=== PATIENT | female | born 1955 | race Caucasian/White ===

== ENCOUNTER → 2017-10-22 | Outpatient (CLI) | payer BC ==
[2017-10-22 13:10] LABS: BASO % 0.1 %; BASO ABS # 0.01 K/uL (0-0.2); COMPLETE YES; EOS % 0.6 %; HEMATOCRIT 37.3 % (37-47); IG% 0.1 %; LYMPH ABS # 0.94 K/uL (1.2-3.4); MEAN CELL VOLUME 92.1 fL (80-100); MEAN CORPUSCULAR HEMOGLOBIN 30.9 pg (25-34); MEAN CORPUSCULAR HGB CONC 33.5 g/dl (32-36); MEAN PLATELET VOLUME 10.3 fL (7.4-10.4); NEUT % 81.2 %; PLATELET COUNT 257 K/uL (130-400); RED BLOOD COUNT 4.05 M/uL (4.2-5.4); WHITE BLOOD COUNT 6.73 K/uL (4.8-10.8)
[2017-10-22 13:37] LABS: BLOOD UREA NITROGEN 18 mg/dl (7-18); CREATININE 0.86 mg/dl (0.60-1.20)
[2017-10-22 14:00] LABS: LYME DISEASE AB IGG NEG (NEG)
[2017-10-22 14:01] LABS: LYME DISEASE AB IGM EQUIVOCAL (NEG)
[2017-10-26 20:21] LABS: ANTI-68 kd Ag (HSP-70 Ab) NEGATIVE (NEGATIVE)
[2017-10-28 14:29] LABS: 18KDIGG BAND NONREACTIVE (NONREACTIVE); 23KDIGG BAND REACTIVE (NONREACTIVE); 23KDIGM BAND REACTIVE (NONREACTIVE); 28KDIGG BAND NONREACTIVE (NONREACTIVE); 30KDIGG BAND NONREACTIVE (NONREACTIVE); 39KDIGG BAND NONREACTIVE (NONREACTIVE); 39KDIGM BAND NONREACTIVE (NONREACTIVE); 41KDIGG BAND REACTIVE (NONREACTIVE); 41KDIGM BAND NONREACTIVE (NONREACTIVE); 45KDIGG BAND NONREACTIVE (NONREACTIVE); 58KDIGG BAND NONREACTIVE (NONREACTIVE); 66KDIGG BAND NONREACTIVE (NONREACTIVE); 93KDIGG BAND NONREACTIVE (NONREACTIVE)
== END | disposition home or self-care (01) ==
LOC: C.LAB1850 11:30
DX: H90.41 Sensorineural hearing loss, unilateral, right ear, with unrestricted hearing on the contralateral side (principal)

== ENCOUNTER → 2017-10-26 | Outpatient (CLI) | payer BC ==
[~2017-10-26] MED LIST: GADAVIST IV PRN
--- NOTE | 2017-10-26 07:35 | DIAGNOSTIC IMAGING REPORT ---
BRAIN COMBO FOR IAC HISTORY: 62 years-old Female H90.41 Right asymmetrical SNHL COMPARISON: None available TECHNIQUE: Multiplanar multisequence MRI of the brain utilizing internal auditory canal protocol was obtained both with and without the use of 5 mL Gadavist. FINDINGS: No restricted diffusion to suggest acute infarction. The midline structures including the corpus callosum, brainstem, optic chiasm, pituitary, and the lumen and pineal glands are unremarkable in the sagittal T1 series. No cerebellar tonsillar herniation. Mild degenerative changes of the imaged cervical spine. No cerebellar tonsillar herniation. No acute intracranial hemorrhage, midline shift, abnormal extra-axial collections, hydrocephalus or intracranial mass identified. Scattered areas of increased T2/FLAIR signal are seen within the subcortical and periventricular white matter of the cerebral hemispheres bilaterally suggesting chronic microvascular ischemic changes. The thin section axial T2 images through the posterior fossa demonstrate normal appearance of the bilateral 7th and 8th cranial nerves. No mass of the cerebellopontine angles. The cisternal portions of the fifth cranial nerves are within normal limits. No abnormal intra-axial or extra-axial enhancement. No mass of the internal auditory canal. The major flow voids at the level the skull base are patent. Trace left mastoid effusion. No significant paranasal sinus disease. Orbits appear symmetric. Scalp, calvarium and soft tissues are unremarkable. IMPRESSION: 1. No acute intracranial abnormality. No abnormal enhancement, intra-axial or extra-axial mass identified. 2. Mild chronic microvascular ischemic changes. 3. Trace left mastoid effusion. The above report was generated using voice recognition software. It may contain grammatical, syntax or spelling errors. Electronically signed by: Javy Khoury M.D. 10/26/2017 7:34 AM Dictated Date/Time: 10/26/2017 7:28 AM
== END | disposition home or self-care (01) ==
LOC: C.MRI 06:05
DX: H90.41 Sensorineural hearing loss, unilateral, right ear, with unrestricted hearing on the contralateral side (principal)

== ENCOUNTER 2025-02-12 09:52 | Inpatient (IN) ==
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
[2025-02-12] MEDS: SODIUM CHLORIDE 0.9% 500 ML IV ONE (10:05)
[2025-02-12] MEDS: ONDANSETRON INJ 2 MG/ML 2 ML VIAL IV STA (10:05)
[2025-02-12] MEDS: MoRPHine SULFATE 4 MG/ML 1 ML CARP\\VIAL IV STA ×2 (10:05→12:18)
--- NOTE | 2025-02-12 10:28 | XRay Report ---
XR hip RT 2V w pelvis HISTORY: 69 years-old Female fall, R hip pain acute right hip pain status post fall COMPARISON: None TECHNIQUE: AP view of the pelvis with 2 views of the right hip FINDINGS: Mild osteoarthritis of the hips. There is an acute comminuted mildly displaced and impacted transcerv ical right femoral fracture demonstrating 1.2 cm superior displacement. Moderate adjacent soft tissue swelling without dislocation. IMPRESSION: Acute comminuted, impacted and mildly displaced transcervical fracture of the right femur . ACT 112: Negative or not required by law. The above report was generated using voice recognition software. It may contain grammatical, syntax o r spelling errors. Electronically signed by: Gera Khoury M.D. 02/12/2025 10:26 AM
[2025-02-12 10:30] LABS: Basophils # (auto) 0.03 K/uL (0.00-0.20); Basophils % (auto) 0.6 %; Eosinophils # (auto) 0.08 K/uL (0.00-0.50); Eosinophils % (auto) 1.7 %; Hematocrit (blood only) 37.7 % (37.0-47.0); Hemoglobin 12.2 g/dl (12.0-16.0); Immature Granulocytes # (auto) 0.01 K/uL (0.01-0.20); Immature Granulocytes % (auto) 0.2 %; Lymphocytes % (auto) 27.3 %; Mean Corpuscular Hgb Conc 32.4 g/dL (32.0-36.0); Mean Corpuscular Volume 92.9 fL (80.0-100.0); Mean Platelet Volume 9.8 fL (9.4-12.4); Monocytes # (auto) 0.55 K/uL (0.11-0.59); Monocytes % (auto) 11.5 %; Neutrophils % (auto) 58.7 %; Platelet Count 209 K/uL (130-400); RDW Coefficient of Variation 13.4 % (11.5-14.5); RDW Standard Deviation 45.6 fL (36.4-46.3); Red Blood Count 4.06 M/uL (4.20-5.40); White Blood Count 4.77 K/ul (4.8-10.8)
--- NOTE | 2025-02-12 10:37 | XRay Report ---
XR chest 1V portable CLINICAL HISTORY: Trauma COMPARISON STUDY: Chest radiograph and chest CT July 25, 2024. FINDINGS: Bilateral breast implants are incidentally noted. There is no pneumothorax or pleural effus ion. Mild cardiomegaly is unchanged. Pulmonary vascularity is normal. No airspace opacities are ident ified. Subpleural biapical densities favor scarring. IMPRESSION: No acute cardiopulmonary findings. ACT 112: Negative or not required by law. Electronically signed by: Moody Smith M.D. 02/12/2025 10:35 AM
[2025-02-12 10:49] LABS: Albumin Globulin Ratio 1.2 (0.9-2); Albumin Level 4.5 gm/dl (3.4-5.0); BUN Creatinine Ratio 27.5 (10-20); Bilirubin,Total 0.5 mg/dl (0.2-1.0); Creatinine Clr Calc Pharmacy 45.5 ml/min; Globulin 3.9 gm/dl (2.5-4.0); Potassium 4.2 mmol/L (3.5-5.1); Total Protein 8.4 gm/dl (6.0-8.3)
[2025-02-12 10:59] LABS: INR 0.9 (0.9-1.1); Partial Thromboplastin Ratio 0.9; Partial Thromboplastin Time 24 Seconds (21-31); Prothrombin Time 10.3 Seconds (9.0-12.0)
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
[2025-02-12 12:51] LABS: Appearance Urine Clear (Clear); Bilirubin Urine Negative (Negative); Blood Urine Negative (Negative); Color Urine Yellow; Glucose Urine UA Negative (Negative); Ketones Urine Negative (Negative); Leukocyte Esterase Urine Negative (Negative); Nitrite Urine Negative (Negative); Protein Urine Negative (Negative); Specific Gravity Urine 1.012 (1.000-1.030); Urobilinogen Urine Negative (Negative)
[2025-02-12 14:00] LABS: iSTAT Creatinine 1.1 mg/dl (0.6-1.3); iSTAT Hemoglobin 12.9 g/dl (12.0-16.0); iSTAT Ionized Calcium 1.14 mmol/l (1.12-1.32); iSTAT Potassium 4.2 mmol/L (3.3-5.0)
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
[2025-02-12] MEDS ORDERED: MELATONIN 3 MG TAB PO PRN (15:41)
[2025-02-12] MEDS ORDERED: POLYETHYLENE (MIRALAX) 17 GM PACK PO PRN (15:41)
[2025-02-12] MEDS ORDERED: ONDANSETRON INJ 2 MG/ML 2 ML VIAL IV PRN (15:41)
[2025-02-12] MEDS: ACETAMINOPHEN 500 MG TAB PO PRN (16:44)
[2025-02-12] MEDS: oxyCODONE HCL IR 5 MG TAB (IMMEDIATE RELEASE) PO PRN (23:05)
[2025-02-13] MEDS: LEVOTHYROXINE SODIUM 75 MCG TABLET PO SCH (05:30)
[2025-02-13] MEDS: MoRPHine SULFATE 4 MG/ML 1 ML CARP\\VIAL IV PRN (06:02)
[2025-02-13 07:31] LABS: Hemoglobin 11.6 g/dl (12.0-16.0); Mean Corpuscular Hemoglobin 30.4 pg (25.0-34.0); Mean Corpuscular Hgb Conc 33.1 g/dL (32.0-36.0); Mean Corpuscular Volume 91.9 fL (80.0-100.0); Mean Platelet Volume 9.5 fL (9.4-12.4); Platelet Count 192 K/uL (130-400); RDW Coefficient of Variation 13.4 % (11.5-14.5); RDW Standard Deviation 45.1 fL (36.4-46.3); Red Blood Count 3.81 M/uL (4.20-5.40); White Blood Count 7.63 K/ul (4.8-10.8)
[2025-02-13 07:43] LABS: BUN Creatinine Ratio 23.5 (10-20); Calcium 8.4 mg/dl (8.6-10.3); Creatinine Clr Calc Pharmacy 50.6 ml/min; Potassium 4.3 mmol/L (3.5-5.1)
--- NOTE | 2025-02-13 07:58 | Electrocardiogram Report ---
Test Reason : Blood Pressure : */* mmHG Vent. Rate : 75 BPM Atrial Rate : 75 BPM P-R Int : 150 ms QRS Dur : 90 ms QT Int : 374 ms P-R-T Axes : 47 -46 52 degrees QTcB Int : 417 ms Normal sinus rhythm Left atrial enlargement Left anterior fascicular block Incomplete right bundle branch block Voltage criteria for left ventricular hypertrophy Abnormal ECG When compared with ECG of 25-Jul-2024 11:48, No significant change was found Confirmed by Georges Epstein ([id number]) on 02/13/2025 7:57:42 AM Referred By: REFERRED SELF Confirmed By: Georges Epstein
[2025-02-13] MEDS: CHOLECALCIFEROL 25 MCG (1000 UNITS) TAB PO SCH (09:19)
[2025-02-13] MEDS: CYANOCOBALAMIN (B-12) 500 MCG TABLET PO SCH (09:19)
[2025-02-13] MEDS: SODIUM CHLORIDE 0.9% 1,000 ML IV ONE (10:44)
[2025-02-13] MEDS: ACETAMINOPHEN 1,000 MG/100 ML VIAL IV STA (10:49)
--- NOTE | 2025-02-13 11:53 | Orthopedic Progress Note ---
Date of Service February 13, 2025 Assessment & Plan (1) Femoral neck fracture: Plan: Patient is scheduled for right hip total arthroplasty with Dr. Kaur early this afternoon. She is currently NPO. She was very thirsty. I ordered her IV maintenance fluids while she is waiting for surgery. She can have a mouth swab to wet her mouth. As she was n.p.o. she did not receive any Tylenol, so I ordered her a one-time dose of IV Tylenol. She has morphine ordered. Will continue to follow after surgery. Admission and Anticipated Discharge Date Admission Date: February 12, 2025 Supervising Physician Co-Signing Physician Notes I saw and examined the patient. All questions answered. Surgical site marked. Proceed to operating room today for total hip replacement. Bertha Blackwell is seen in bed this morning. She states that she is still in pain but was able to get some sleep overnight. She was given morphine this morning. She is very thirsty. Denies any numbness or tingling in her toes. Physical Exam Constitutional: Laying supine in bed. Pleasant. No distress. Cardiovascular: Right DP and PT pulses 2+ Musculoskeletal: Right lower extremity: External rotation is noted. No calf tenderness. Able to move all toes. Able to plantarflex and dorsiflex the ankle. Neurologic: No sensory deficits in right lower extremity L3-S1 distribution to light touch Results & Data Vital Signs (Past 12 Hours) Vital Signs Temp Pulse Resp BP Pulse Ox O2 Del Method 02/13/25 07:07 98.2 F 73 16 134/68 96 Room Air Laboratory Results 02/13/25 02/12/25 02/12/25 07:10 12:36 10:11 WBC 7.63 RBC 3.81 L Hgb 11.6 L POC Hgb 12.9 Hct 35.0 L POC Hct 38 MCV 91.9 MCH 30.4 MCHC 33.1 RDW Std Deviation 45.1 RDW Coeff of Rachel 13.4 Plt Count 192 MPV 9.5 POC Sodium 137 Sodium 135 L POC Potassium 4.2 Potassium 4.3 POC Chloride 101 Chloride 104 Carbon Dioxide 27 POC Total CO2 25 Anion Gap 4 POC Anion Gap 17.0 POC BUN 28 H BUN 19 Creatinine 0.81 POC Creatinine 1.1 Est Cr Clr Drug Dosing 50.6 eGFR 77.56 BUN/Creatinine Ratio 23.5 H Glucose 120 H POC Glucose (other) 181 H Calcium 8.4 L POC Ioniz Calcium Misty 1.14 25-OH Vitamin D Total 46.0 Urine Color Yellow Urine Appearance Clear Urine pH 7.0 Ur Specific [place] 1.012 Urine Protein Negative Urine Glucose (UA) Negative Urine Ketones Negative Urine Blood Negative Urine Nitrite Negative Urine Bilirubin Negative Urine Urobilinogen Negative Ur Leukocyte Esterase Negative (1) Femoral neck fracture Encounter type: initial encounter Fracture type: closed Laterality: right Qualified Code(s): S72.001A - Fracture of unspecified part of neck of right femur, initial encounter for closed fracture
[2025-02-13] MEDS ORDERED: LIDOCAINE 2% 2 ML VIAL/AMP(20MG/ML) INFIL ONE (12:26)
[2025-02-13] MEDS ORDERED: PROPOFOL IV EMULSION 10 MG/ML 20 ML VIAL IV ONE ×2 (12:26→14:28)
[2025-02-13] MEDS ORDERED: MIDAZOLAM HCL 1 MG/ML 2ML VIAL ONE (12:29)
[2025-02-13] MEDS ORDERED: fentaNYL citrate PF 100 MCG/2 ML VIAL ONE (12:29)
[2025-02-13] MEDS ORDERED: BUPIVACAINE 0.5 % 5 MG/1 ML PF 10ML VIAL ONE (12:36)
--- NOTE | 2025-02-13 12:44 | Anesthesiology Consultation ---
Date of Service February 13, 2025 Assessment & Plan (1) Encounter for pre-operative examination: Chart Review Chart Review: Acceptable Risk for Surgery History Surgery Operation Date: 02/13/25 13:00 Proposed Procedures p Right Total Hip Arthroplasty, Possible Cemented - Mio Kaur MD Height/Weight Height: 5 ft 5 in Weight: 50.349 kg Allergies Allergy/AdvReac Type Severity Reaction Status Date / Time No Known Allergies Allergy Verified 02/12/25 10:57 Medications Home Medications Medication Instructions Recorded Confirmed Last Taken cyanocobalamin (vitamin B-12) 1,000 mcg PO QAM 02/15/24 02/12/25 02/11/25 1,000 mcg tablet (Vitamin B-12) alendronate 70 mg tablet 70 mg PO WK #12 tabs 06/05/24 02/12/25 02/08/25 cholecalciferol (vitamin D3) 50 100 mcg PO DAILY 02/12/25 02/12/25 02/11/25 mcg (2,000 unit) tablet (Vitamin D3) levothyroxine 75 mcg tablet 75 mcg PO QAM 02/12/25 02/12/25 02/12/25 Active Medications Generic Name Dose Route Start Last Admin Trade Name Freq PRN Reason Stop Dose Admin Acetaminophen 1,000 mg 02/12/25 15:41 02/12/25 16:44 Acetaminophen 500 Mg Tab PO 03/14/25 15:40 1,000 mg Q8 PRN Administration pain/fever Cyanocobalamin 1,000 mcg 02/13/25 09:00 02/13/25 09:19 Cyanocobalamin (B-12) 500 Mcg Tablet PO 03/15/25 08:59 Not Given QAM TUCKER Sodium Chloride 1,000 mls @ 80 mls/hr 02/13/25 10:39 02/13/25 10:44 Nss IV 02/13/25 23:08 80 mls/hr .[id number] ONE Administration Levothyroxine Sodium 75 mcg 02/13/25 06:30 02/13/25 05:30 Levothyroxine Sodium 75 Mcg Tablet PO 03/15/25 06:29 Not Given DAILYBB TUCKER Morphine Sulfate 4 mg 02/12/25 15:41 02/13/25 06:02 Morphine Sulfate 4 Mg/Ml 1 Ml Carp\Vial IV 02/26/25 15:40 4 mg Q6H PRN Administration Pain Oxycodone HCl 5 mg 02/12/25 15:41 02/12/25 23:05 Oxycodone Hcl Ir 5 Mg Tab (Immediate Release) PO 02/26/25 15:40 5 mg Q6H PRN Administration Pain Vitamin D 100 mcg 02/13/25 09:00 02/13/25 09:19 Cholecalciferol 25 Mcg (1000 Units) Tab PO 03/15/25 08:59 Not Given DAILY TUCKER NPO Date Last Intake of Fluids: 02/12/25 Time Last Intake of Fluids: 23:00 Date Last Intake of Solids: 02/12/25 Time Last Intake of Solids: 21:00 Past Medical History Medical History Osteoporosis alendronate started 06/2023 Sensorineural hearing loss (SNHL) of right ear with restricted hearing of left ear Hypothyroidism Past Family History Family History Brother Colonic polyp Stroke Father Family history of ischemic heart disease and other diseases of the circulatory system Myocardial infarction Stroke Mother Family history of ischemic heart disease and other diseases of the circulatory system Myocardial infarction Cancer Aunt Cancer Other No family history of adverse response to anesthesia Denies family history of Ovarian cancer Prostate cancer Breast cancer Colorectal cancer Past Surgical History Surgical History History of cataract surgery right History of colonoscopy History of History of breast augmentation Social History Smoking Status: Never smoker Do You Dip or Chew Tobacco: No Hx Alcohol Use: No Alcohol type: wine Hx Substance Use: No substance use type: does not use Physical Exam Vital Signs Last Vital Signs Temp 37 C 02/13/25 12:17 Pulse 93 H 02/13/25 12:17 Resp 16 02/13/25 12:17 BP 152/65 H 02/13/25 12:17 Pulse Ox 96 02/13/25 12:17 O2 Del Method Room Air 02/13/25 12:17 Testing Laboratory Results 02/13/25 07:10 02/13/25 07:10 PT 10.3 Seconds (9.0-12.0) 02/12/25 10:07 INR 0.9 (0.9-1.1) 02/12/25 10:07 APTT 24 Seconds (21-31) 02/12/25 10:07 Urine Color Yellow 02/12/25 12:36 Urine Appearance Clear (Clear) 02/12/25 12:36 Urine pH 7.0 (4.5-7.5) 02/12/25 12:36 Ur Specific [place] 1.012 (1.000-1.030) 02/12/25 12:36 Urine Protein Negative (Negative) 02/12/25 12:36 Urine Glucose (UA) Negative (Negative) 02/12/25 12:36 Urine Ketones Negative (Negative) 02/12/25 12:36 Urine Nitrite Negative (Negative) 02/12/25 12:36 Ur Leukocyte Esterase Negative (Negative) 02/12/25 12:36 Electrocardiogram Date: 02/12/25 Findings: + NSR @ (75) and + RBBB (incomplete)
[2025-02-13] MEDS ORDERED: ROPIVACAINE 0.5% 5 MG/ML 30 ML VIAL ONE (12:46)
[2025-02-13] MEDS: TRANEXAMIC ACID / 0.7% NACL 1,000 MG/100 ML BAG IV ONE ×2 (12:49→14:18)
[2025-02-13] MEDS: ceFAZolin 2000MG 2,000 MG/15 ML SYR IV ONE (13:10)
[2025-02-13] MEDS ORDERED: ATROPINE SULFATE 0.1 MG/ML 10ML SYR IV PRN (13:22)
[2025-02-13] MEDS ORDERED: KETOROLAC 30 MG/ML VIAL IV PRN (13:22)
[2025-02-13] MEDS ORDERED: ePHEDrine sulfate 50 MG/ML AMP IV PRN (13:22)
[2025-02-13] MEDS ORDERED: ONDANSETRON INJ 2 MG/ML 2 ML VIAL IV PRN ×2 (13:22→15:52)
[2025-02-13] MEDS ORDERED: HYDROmorphone INJ 1 MG/ML SYRINGE IV PRN (13:22)
[2025-02-13] MEDS ORDERED: PHENYLEPHRINE HCL 10 MG/ML VIAL ONE (13:32)
[2025-02-13] MEDS ORDERED: ePHEDrine sulfate 50 MG/5 ML SYR ONE (13:35)
[2025-02-13] MEDS ORDERED: PHENYLEPHRINE 100MCG/ML 5ML SYR ONE (13:35)
[2025-02-13] MEDS: ROPIVACAINE 0.5% HCL/PF 246 MG, Ketorolac (*for OR use only*) 30 MG, EPINEPHrine 30MG/3... INFIL SCH (13:45)
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
[2025-02-13] MEDS ORDERED: oxyCODONE HCL IR 5 MG TAB (IMMEDIATE RELEASE) PO PRN (15:52)
[2025-02-13] MEDS ORDERED: diphenhydrAMINE 50 MG/ML VIAL IV PRN (15:52)
[2025-02-13] MEDS ORDERED: MAGNESIUM HYDROXIDE SUSP 30 ML UDC PO PRN (15:52)
[2025-02-13] MEDS ORDERED: HYDROmorphone INJ 0.5 MG/0.5 ML SYR IV PRN (15:52)
[2025-02-13] MEDS ORDERED: METOCLOPRAMIDE HCL INJ 5 MG/ML 2 ML VIAL IV PRN (15:52)
[2025-02-13] MEDS ORDERED: bisacodyL 10 MG SUPP PR PRN (15:52)
[2025-02-13] MEDS ORDERED: NALOXONE HCL 0.4 MG/1 ML VIAL/CARP IV PRN (15:52)
[2025-02-13] MEDS ORDERED: ALUMINUM/MAGNESIUM SUSP 30 ML UDC PO PRN (15:52)
[2025-02-13] MEDS: ceFAZolin 2,000 MG/15 ML IV PUSH IV ONE (15:54)
[2025-02-13] MEDS: TRANEXAMIC ACID / 0.7% NACL 1000MG/100ML BAG IV ONE (15:54)
--- NOTE | 2025-02-13 16:01 | XRay Report ---
Clinical History: Hip replacement One view of the pelvis is submitted for review. Findings: There is a right hip total arthroplasty in expected position. There is no definite sign of infection or loosening. There are pockets of air in the adjacent soft tissues, likely due to recent surgery. The left hip joint appears unremarkable. No other osseous abnormality is identified. There are no radiopaque foreign bodies. Impression: Right hip replacement Electronically signed by Dominguez Hui 02-13-2025 4:00 PM
--- NOTE | 2025-02-13 16:05 | Anesthesiology Progress Note ---
Date of Service February 13, 2025 Anesthesia Post Procedure Vital Signs Vital Signs: Temp Pulse Pulse Resp BP Pulse Ox O2 Del Method 02/13/25 15:50 36.4 C L 71 17 125/61 96 Room Air 02/13/25 15:35 36.7 C 80 13 127/62 95 Room Air 02/13/25 15:25 92 H 22 118/62 95 Room Air 02/13/25 15:15 80 15 124/56 L 100 Oxymask 02/13/25 15:07 36.8 C 90 20 124/68 100 Oxymask 02/13/25 12:17 37 C 93 H 16 152/65 H 96 Room Air 02/13/25 07:07 36.8 C 73 16 134/68 96 Room Air 02/12/25 20:31 37.2 C 78 18 164/73 H 95 Room Air 02/12/25 18:17 61 18 127/65 99 Room Air O2 Flow Rate 02/13/25 15:50 02/13/25 15:35 02/13/25 15:25 02/13/25 15:15 6 02/13/25 15:07 6 02/13/25 12:17 02/13/25 07:07 02/12/25 20:31 02/12/25 18:17 Pain Intensity Hip: Pain Intensity: 8 Transfer of Care Handoff Completed per policy Notes Mental Status: alert / awake / arousable Patient Amnestic to Procedure: Yes Nausea / Vomiting: adequately controlled Pain: adequately controlled Airway Patency, RR, SpO2: stable & adequate BP & HR: stable & adequate Hydration State: stable & adequate Neuraxial Anesthesia: was administered and sensory block is resolving Anesthetic Complications: no major complications apparent and Pt Satisfied with anesthetic care
[2025-02-13] MEDS: ASCORBIC ACID 500 MG TAB PO SCH (17:11)
[2025-02-13] MEDS: FERROUS GLUCONATE 324 MG TAB PO SCH (17:12)
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
[2025-02-13] MEDS: KETOROLAC TROMETHAMINE 15 MG/ML VIAL IV SCH (18:29)
[2025-02-13] MEDS: SENNA 8.6 MG TAB PO SCH (21:27)
[2025-02-13] MEDS: DOCUSATE SODIUM 100 MG CAP PO SCH (21:27)
[2025-02-13] MEDS: dexAMETHasone 10 MG in SYRINGE 0 ML IV SCH (21:27)
[2025-02-13] MEDS: ceFAZolin 2000MG 2,000 MG/15 ML SYR IV SCH (21:27)
[2025-02-13] MEDS: CeleBREX 200 MG CAP PO SCH (21:28)
[2025-02-13] MEDS: ACETAMINOPHEN 500 MG TAB PO SCH (21:29)
[2025-02-14 07:11] LABS: Basophils # (auto) 0.01 K/uL (0.00-0.20); Basophils % (auto) 0.1 %; Hematocrit (blood only) 32.7 % (37.0-47.0); Hemoglobin 10.8 g/dl (12.0-16.0); Immature Granulocytes # (auto) 0.01 K/uL (0.01-0.20); Immature Granulocytes % (auto) 0.1 %; Lymphocytes # (auto) 0.44 K/uL (1.20-3.40); Lymphocytes % (auto) 6.3 %; Mean Corpuscular Hemoglobin 30.5 pg (25.0-34.0); Mean Corpuscular Volume 92.4 fL (80.0-100.0); Monocytes # (auto) 0.42 K/uL (0.11-0.59); Neutrophils # (auto) 6.08 K/uL (1.40-6.50); Neutrophils % (auto) 87.5 %; Platelet Count 190 K/uL (130-400); RDW Coefficient of Variation 13.8 % (11.5-14.5); RDW Standard Deviation 46.9 fL (36.4-46.3); Red Blood Count 3.54 M/uL (4.20-5.40); White Blood Count 6.96 K/ul (4.8-10.8)
[2025-02-14 07:26] LABS: BUN Creatinine Ratio 21.5 (10-20); Calcium 8.4 mg/dl (8.6-10.3); Creatinine Clr Calc Pharmacy 38.3 ml/min; Potassium 4.9 mmol/L (3.5-5.1)
[2025-02-14 07:51] VITALS: RESP 16; TEMP 97.7
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
[2025-02-14] MEDS ORDERED: dexAMETHasone 10 MG in SYRINGE 0 ML IV SCH (08:00)
[2025-02-14] MEDS: MULTIVITAMIN TAB PO SCH (08:07)
[2025-02-14] MEDS: ASPIRIN 81 MG ECTAB PO SCH (08:08)
--- NOTE | 2025-02-14 09:21 | Orthopedic Progress Note ---
Date of Service February 14, 2025 Assessment & Plan (1) Closed hip fracture: Plan: POD 1 - Status post a right total hip arthroplasty for femoral neck fracture with Dr. Kaur She may be weightbearing as tolerated and out of bed with walker assistance. Posterior hip precautions at all times. Ice and elevate as needed for pain or swelling. MJ stockings on during the day and off at night. Pain medication as prescribed. Physical therapy and Occupational Therapy as ordered. Abduction pillow when in bed and center pillow between knees when bed. Patient overall doing well today. Okay from an orthopedic standpoint for discharge to home. Case management for disposition needs. May benefit from in-home physical therapy until her 2-week follow-up appointment. Please arrange HH for home. Pain medication prescribed and sent to pharmacy today. Call our office with any questions or concerns. [phone]. Dr. Kaur informed of findings. Admission and Anticipated Discharge Date Admission Date: February 12, 2025 Subjective Patient is doing well. No complaints of pain in her right hip. Very pleased with how she is feeling. She states she just has some mild "soreness". She has been out of bed and is now getting up with physical therapy. Feels that she should be able to go home today. Her is at bedside. Physical Exam Musculoskeletal: Exam of her right lower extremity: She has no distal edema of the right leg. She has full ankle range of motion with normal strength. Distal sensation is intact. Distal pulses are 2+. Calf is supple and nontender. Range of motion of the right knee is normal. She is able to independently straight leg raise and hold against resistance. Her pressure dressing was removed from her right hip and her Silverlon dressing is in place. No significant edema of right thigh. Thigh is supple and nontender with palpation. Results & Data Vital Signs (Past 12 Hours) Vital Signs Temp Pulse Pulse Resp BP Pulse Ox O2 Del Method 02/14/25 07:42 36.5 C 83 16 109/54 L 95 Room Air 02/14/25 02:57 37.1 C 80 18 112/68 94 Room Air 02/13/25 23:18 36.8 C 74 18 115/58 L 96 Room Air Laboratory Results 02/14/25 Range/Units 06:35 WBC 6.96 (4.8-10.8) K/ul RBC 3.54 L (4.20-5.40) M/uL Hgb 10.8 L (12.0-16.0) g/dl Hct 32.7 L (37.0-47.0) % MCV 92.4 (80.0-100.0) fL MCH 30.5 (25.0-34.0) pg MCHC 33.0 (32.0-36.0) g/dL RDW Std Deviation 46.9 H (36.4-46.3) fL RDW Coeff of Rachel 13.8 (11.5-14.5) % Plt Count 190 (130-400) K/uL MPV 10.0 (9.4-12.4) fL Immature Gran % (Auto) 0.1 % Neut % (Auto) 87.5 % Lymph % (Auto) 6.3 % Tift % (Auto) 6.0 % Eos % (Auto) 0.0 % Baso % (Auto) 0.1 % Neut # (Auto) 6.08 (1.40-6.50) K/uL Lymph # (Auto) 0.44 L (1.20-3.40) K/uL Tift # (Auto) 0.42 (0.11-0.59) K/uL Eos # (Auto) 0.00 (0.00-0.50) K/uL Baso # (Auto) 0.01 (0.00-0.20) K/uL Immature Gran # (Auto) 0.01 (0.01-0.20) K/uL Sodium 134 L (136-145) mmol/L Potassium 4.9 (3.5-5.1) mmol/L Chloride 102 (98-107) mmol/L Carbon Dioxide 26 (21-32) mmol/L Anion Gap 6 (3-11) BUN 23 (6-23) mg/dl Creatinine 1.07 (0.6-1.2) mg/dl Est Cr Clr Drug Dosing 38.3 ml/min eGFR 55.53 BUN/Creatinine Ratio 21.5 H (10-20) Glucose 147 H (70-99(Fasting)) mg/dl Calcium 8.4 L (8.6-10.3) mg/dl Diagnostic Findings Clinical History: Hip replacement One view of the pelvis is submitted for review. Findings: There is a right hip total arthroplasty in expected position. There is no definite sign of infection or loosening. There are pockets of air in the adjacent soft tissues, likely due to recent surgery. The left hip joint appears unremarkable. No other osseous abnormality is identified. There are no radiopaque foreign bodies. Impression: Right hip replacement (1) Closed hip fracture Encounter type: initial encounter Laterality: right Qualified Code(s): S72.001A - Fracture of unspecified part of neck of right femur, initial encounter for closed fracture
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
[2025-02-14 11:23] VITALS: BP 110/73; PULSE 88; O2SAT 97
[2025-02-15] MEDS ORDERED: ALENDRONATE SODIUM 70 MG TAB PO SCH (06:30)
== END 2025-02-14 13:24 | disposition home health service (06) | DRG 522 ==
LOC: ED 09:52 → SUATTDRO 12:32 → EDINP 12:32 → 3N 19:52